=== PATIENT | male | born 1955 | race Two or more races ===

== ENCOUNTER 2020-09-05 15:20 | Emergency (ER) | payer MEDICARE, MEDICAID, SELFPAY ==
[2020-09-05 15:32] VITALS: BP 119/77; PULSE 99; RESP 16; TEMP 37.1; O2SAT 97; BMI 28.8
--- NOTE | 2020-09-05 16:05 | ED.GENADULT ---
HPI - General Adult General Chief complaint: General Medical Stated complaint: FLU LIKE SYMPTOMS Time Seen by Provider: 09/05/20 16:05 History of Present Illness HPI narrative: Patient com patient complains of body aches, mild runny nose and some fatigue, no cough no shortness of breath no fever This started 3 days ago, symptoms are described as mild Related Data Allergies Allergy/AdvReac Type Severity Reaction Status Date / Time No Known Allergies Allergy Verified 09/05/20 15:45 [No Known Allergies*] Review of Systems Review of Systems: No fever no chills no cough no sputum no weakness, no shortness of breath no chest pain no abdominal pain no rash PMFSH Past Medical History Source: nursing notes reviewed Medical History (Updated 09/05/20 @ 16:13 by AISHA Sanon) High cholesterol Social History Social History Smoked in Last 30 Days: No Use of substances other than those prescribed or required for medical reasons: No Advance Directives: No Advance Directives Information Provided: Yes Physical Exam Vital Signs: Vital Signs: Vital Signs Temp Pulse Resp BP Pulse Ox 09/05/20 15:32 98.7 F 99 16 119/77 97 Body Mass Index 28.8 General appearance is comfortable relax cooperative no acute distress A&O x3, ambulates easily and speaking normally No sinus tenderness, neck is supple without lymphadenopathy Chest is clear to auscultation bilaterally No acute respiratory distress The heart is without murmur Abdomen soft nontender Extremities no edema Neuro no focal deficit Course Course Course Narrative: Comfortable patient who speaks full sentences ambulates easily and is in no discomfort is tested for COVID and discharged home Discharge Plan Discharge Clinical Impression: Acute viral syndrome Patient Disposition: Home, Self-Care Instructions: Viral Syndrome (ED) Additional Instructions: We will call you with COVID test results Return any time for difficulty breathing, any worse condition any concerns Interventions: ED Discharge Assessment Last Done: 09/05/20 16:18 Discharge Date/Time: 09/05/20 16:24
== END 2020-09-05 16:24 | disposition home or self-care (01) ==
PROVIDERS: Emergency Provider Emergency Medicine; PCP Internal Medicine
DX: B34.9 Viral infection, unspecified (principal); M79.10 Myalgia, unspecified site; Z20.828 Contact with and (suspected) exposure to other viral communicable diseases
CPT/HCPCS: 99283; 99284; U0003

== ENCOUNTER → 2020-09-10 13:40 | Outpatient (BNVA) | payer MEDICARE, MEDICAID, SELFPAY | PROVIDERS: PCP Internal Medicine; Referring Provider Internal Medicine; Visit Provider Nurse Practitioner Family | DX: Z01.818 Encounter for other preprocedural examination (principal) | CPT/HCPCS: 99212 ==

== ENCOUNTER 2020-11-24 07:38 | Day surgery (SDC) | payer MEDICARE, MEDICAID, SELFPAY ==
--- NOTE | 2020-11-21 10:14 | HO.ANESPROP2 ---
HPI - Anesthesia Eval Consult details Narrative: 65yo M for Colonoscopy [facility] Past Medical History Medical History High cholesterol Family History Family History Father Heart problem Mother No problems noted. Social History Social History Alcohol intake: current Alcohol intake frequency: does not drink Alcohol type: beer and wine Smoking Status: Never smoker Meds Allergies Allergy/AdvReac Type Severity Reaction Status Date / Time No Known Allergies Allergy Verified 11/24/20 07:56 [No Known Allergies*] Home Medications Medication Instructions Recorded Confirmed Type atorvastatin 40 mg tablet 40 mg PO BEDTIME 09/10/20 11/18/20 History hydrochlorothiazide 12.5 mg tablet 12.5 mg PO DAILY 09/10/20 11/18/20 History Exam Exam Date and Time: November 21, 2020 1014 Assessment and Plan Assessment Anesthesia Assessment: Chart Reviewed
[2020-11-24 07:57] VITALS: BP 148/91; PULSE 94; RESP 18; TEMP 36.2; O2SAT 98; BMI 28.0
--- NOTE | 2020-11-24 08:29 | HO.ANESPROP2 ---
FORMERLY [facility] Past Medical History Medical History High cholesterol Family History Family History Father Heart problem Mother No problems noted. Social History Social History Alcohol intake: current Alcohol intake frequency: does not drink Alcohol type: beer and wine Smoking Status: Never smoker Use of substances other than those prescribed or required for medical reasons: No Advance Directives: No Advance Directives Information Provided: Yes Meds Allergies Allergy/AdvReac Type Severity Reaction Status Date / Time No Known Allergies Allergy Verified 11/24/20 07:56 [No Known Allergies*] Home Medications Medication Instructions Recorded Confirmed Type atorvastatin 40 mg tablet 40 mg PO BEDTIME 09/10/20 11/18/20 History hydrochlorothiazide 12.5 mg tablet 12.5 mg PO DAILY 09/10/20 11/18/20 History Exam Exam Date and Time: November 24, 202029 Height,Weight and Vital Signs: Height 5 ft 6 in Weight 78.925 kg Last Vital Signs Temp 97.2 F 11/24/20 07:57 Pulse 94 11/24/20 07:57 Resp 18 11/24/20 07:57 BP 148/91 H 11/24/20 07:57 Pulse Ox 98 11/24/20 07:57 Airway Mallampati Class: II TM Dist: >3cm Neck ROM: Full Heart: RRR Lungs: CTA
[2020-11-24] MEDS: Lactated Ringers 1,000 ML 50 ML IVCONT (08:32)
--- NOTE | 2020-11-24 08:40 | MHC.SHP ---
Pre-Procedural Eval Section B Chief Complaint: screening Relevant Social History: None Present Medications: see Short Stay Collaborative assessment Medical History: Significant History (HLP) History of Previous Operations: No relevant previous surgery Allergies: Allergies Allergy/AdvReac Type Severity Reaction Status Date / Time No Known Allergies Allergy Verified 11/24/20 07:56 [No Known Allergies*] Review of Systems Sugical H&P ROS: Negative: Constitution, Cardiovascular, Respiratory, Neurological, Psychiatric, Hem-Onc, Allergic/Immunologic, Gastrointestinal, Genitourinary, Musculoskeletal, Integumentary, Endocrine and Eyes/Ears/Nose/Throat Exam Surgical H&P Exam: Normal: HEENT, Normal: Heart, Normal: Lungs, Normal: Extremities, Normal: Abdomen, Normal: Skin and Normal: Neurological Plan Diagnosis/Plan: Unchanged I have reviewed the history and physical and performed a pertinent physical examination on my patient. No changes have occurred unless specified.
--- NOTE | 2020-11-24 08:43 | PM.OP ---
Brief Operative Note Date of Service: 11/24/20 Pre-op diagnosis: colon screen Post-op diagnosis: other (polyp) Procedure: see op note Surgeon: Fifi Cano MD Anesthesia: MAC Estimated blood loss (mL): 0 Condition: stable Disposition: PACU
--- NOTE | 2020-11-24 08:44 | P.OP_ITS ---
Operative Note Operative Note Date of Service: 11/24/20 Narrative: Operative Information Procedure Description: Colonoscopy COLONOSCOPY Instrument: Olympus variable stiffness pediatric scope 190L Colonoscopy Monitoring: Vital signs and clinical assessment, continuous EKG monitoring, Pulse oximetry, Carbon Dioxide monitoring and blood pressure monitoring were done throughout the procedure. Colon withdrawal time was 11 minutes. Procedure: The patient was placed in the left lateral decubitis position and pre-procedure medications were administered. After a digital rectal examination of the ano-rectum, the video colonoscope was inserted into the rectum and advanced through the colon to the cecum/TI. The colonoscope was slowly withdrawn in a retrograde panoramic fashion and the colon mucosa was carefully examined including a retroflexed view of the rectum. Findings and interventions are described below. Procedure Difficulty:easy Findings: Gaytan diverticulosis, most severe in sigmoid, with wide mouthed tics Terminal Ileum-normal Cecum: 10-13 mm stellate shaped sessile polyp injected with 1-2 cc of ORISE and then removed with cold snare en bloc Ascending Colon: normal Transverse Colon -normal Descending Colon:normal Sigmoid Colon: normal Rectum: Retroflexion with moderate sized internal hemorrhoids, grade I Anorectum - normal Colon preparation: Garrison Bowel Preparation Scale Right colon; 1 Transverse colon: 2 Left colon; 2 (0 = Unprepared colon segment with mucosa not seen due to solid stool that cannot be cleared. 1 = Portion of mucosa of the colon segment seen, but other areas of the colon segment not well seen due to staining, residual stool and/or opaque liquid. 2 = Minor amount of residual staining, small fragments of stool and/or opaque liquid, but mucosa of colon segment seen well. 3 = Entire mucosa of colon segment seen well with no residual staining, small fragments of stool or opaque liquid) Impression and Post Procedure Diagnosis: polyp internal hemorrhoids diverticular disease Plan: High fiber diet leaflet Avoid straining at stool, epsom salts and sitz bath, anusol supps or cream Repeat Colonoscopy in 1-2 years due to right sided prep being slightly less than optimal or earlier if clinically indicated Above findings were reviewed with the patient and relevant handouts were provided if indicated.
[2020-11-24 09:13] VITALS: BP 103/72; PULSE 98; RESP 17; TEMP 36.3; O2SAT 95
[2020-11-24 09:28] VITALS: BP 114/72; PULSE 80; RESP 16; O2SAT 95
--- NOTE | 2020-11-24 10:54 | HO.POSTANES ---
Post Anesthesia Evaluation Post Anesthesia Evaluation Vital Signs: Vital Signs Temp Pulse Resp BP Pulse Ox 11/24/20 09:28 80 16 114/72 95 11/24/20 09:13 97.4 F 98 17 103/72 95 11/24/20 07:57 97.2 F 94 18 148/91 H 98 Anesthesia: Monitored Mental Status: Awake Pain Control: Satisfactory Nausea/Vomiting: None Hydration: Adequate Anesthesia-Related Issues: No Anes. Related Issues
== END 2020-11-24 10:03 | disposition home or self-care (01) ==
PROVIDERS: PCP Internal Medicine; Visit Provider Internal Medicine Gastroenterology
PROC: 0DJD8ZZ Inspection of Lower Intestinal Tract, Via Natural or Artificial Opening Endoscopic (ICD-10-PCS; CPT 45378; principal; 2020-11-24 08:30)
DX: Z12.11 Encounter for screening for malignant neoplasm of colon (principal); D12.0 Benign neoplasm of cecum; K57.30 Diverticulosis of large intestine without perforation or abscess without bleeding; K64.0 First degree hemorrhoids; E78.00 Pure hypercholesterolemia, unspecified; Z79.899 Other long term (current) drug therapy
CPT/HCPCS: 45385; 45381; 88305

== ENCOUNTER 2020-12-18 13:46 | Outpatient (REF) | payer MEDICARE, MEDICAID, SELFPAY ==
--- NOTE | ~2020-12-18 | US_ITS ---
EXAMINATION: US EXTRACRANIAL CAROTID DUPLEX, BILATERAL CLINICAL INFORMATION: This is a 65-year-old male with syncope. Carotid artery disease. COMPARISON: None TECHNIQUE: Real-time ultrasound and Doppler techniques (integrating B-mode 2-D vascular images, Doppler spectral analysis and color-flow Doppler imaging) were utilized to interrogate the extracranial carotid arteries, the vertebral arteries and proximal subclavian arteries bilaterally. The degree of stenosis is determined by criteria similar to NASCET. FINDINGS: Right Side: 1. There is minimal atherosclerotic plaque seen in the bifurcation/proximal ICA region. 2. The common carotid artery PSV proximally is 137 cm/s and distally 75 cm/s. 3. The proximal internal carotid artery velocities are 69 cm/s systolic and 20 cm/s diastolic. 4. The proximal external carotid artery PSV is 76 cm/s. 5. The vertebral artery shows antegrade flow. 6. The subclavian artery waveforms are normal. Left Side: 1. There is normal atherosclerotic plaque seen in the bifurcation/proximal ICA region. 2. The common carotid artery PSV proximally is 100 cm/s and distally 89 cm/s. 3. The proximal internal carotid artery velocities are 73 cm/s systolic and 20 cm/s diastolic. 4. The proximal external carotid artery PSV is 80 cm/s. 5. The vertebral artery shows antegrade flow. 6. The subclavian artery waveforms are normal. US/US carotid duplex BI IMPRESSION: 1. RIGHT: Minimal, non-hemodynamically significant stenosis of the proximal right internal carotid artery corresponding to a 0-49% stenosis by velocity criteria. 2. LEFT: Minimal, non-hemodynamically significant stenosis of the proximal left internal carotid artery corresponding to a 0-49% stenosis by velocity criteria.
== END 2020-12-18 13:47 | disposition home or self-care (01) ==
LOC: HO.US 13:46
PROVIDERS: PCP Internal Medicine; Visit Provider Internal Medicine
DX: R55 Syncope and collapse (principal)
CPT/HCPCS: 93880

== ENCOUNTER → 2020-12-26 14:16 | Outpatient (BNVA) | payer MEDICARE, MEDICAID, SELFPAY | PROVIDERS: PCP Internal Medicine; Visit Provider Nurse Practitioner Family | DX: Z76.89 Persons encountering health services in other specified circumstances (principal) | CPT/HCPCS: Q3014 ==

== ENCOUNTER 2021-01-20 14:37 | Emergency (ER) | payer MEDICARE, MEDICAID, SELFPAY ==
[2021-01-20 14:44] VITALS: BP 188/105; PULSE 89; RESP 18; TEMP 36; O2SAT 98; BMI 28.2
[2021-01-20 17:23] VITALS: BP 174/84; PULSE 91; RESP 16; O2SAT 97
--- NOTE | 2021-01-20 17:30 | ED.BACK ---
HPI - Back Pain/Injury General Chief Complaint: Back Pain/Injury Stated Complaint: BACK PAIN Time Seen by Provider: 01/20/21 17:16 Source: patient Mode of arrival: ambulatory Limitations: no limitations History of Present Illness HPI Narrative: 65 y/o male presenting with non-traumatic right lower back pain that radiates down his right leg for the last 2 days. The pain is preventing him from getting any sleep. He has not been taking any medications for the pain. He has a history of similar episodes. He states he was helping a family member move and was lifting heavy boxes and twisting to pass items along to other people helping out. He woke up the next morning with the pain. He denies numbness or tingling. No weakness in his legs. He is limping due to the pain. No incontinence, no fevers, chills, no hx IVDA. MD elicited complaint: back pain and back injury Pertinent past history: prior back pain Onset (ago): day(s) (2) Timing: constant Severity: severe Similar Symptoms Previously: Yes Quality: aching and spasming Location: right lower back Radiation: right upper leg Exacerbating factors: movement, walking and coughing/sneezing Relieving factors: immobilization and supine Context: while lifting and turning/twisting Associated symptoms: difficulty walking Treatments prior to arrival: cold therapy Work related injury: No Related Data Home Medications Medication Instructions Recorded Confirmed atorvastatin 40 mg tablet 40 mg PO BEDTIME 09/10/20 11/18/20 hydrochlorothiazide 12.5 mg tablet 12.5 mg PO DAILY 09/10/20 11/18/20 Previous Rx's Medication Instructions Recorded polyethylene glycol 3350 17 17 g PO ONCE #238 g 09/10/20 gram/dose oral powder cyclobenzaprine 10 mg PO TID PRN #10 tab 01/20/21 ibuprofen 600 mg PO Q8H PRN #20 tab 01/20/21 lidocaine [Lidoderm] 1 patch TOPICAL DAILY #15 ea 01/20/21 tramadol 50 mg PO Q6-8H PRN #8 tab 01/20/21 Allergies Allergy/AdvReac Type Severity Reaction Status Date / Time No Known Allergies Allergy Verified 01/20/21 14:44 [No Known Allergies*] Review of Systems Review of Systems: Constitutional: No Fever, No Chills Gastrointestinal: No Nausea, No Vomiting, No Diarrhea, No abdominal Belle Genitourinary: No Dysuria, No Urinary Frequency, No Hematuria Musculoskeletal: + joint pain, + Myalgias Skin: No Skin Lesions, No rash Neuro: No Weakness, No Numbness Psych: No Anxiety/Panic, No Depression Heme/Lymph: No Bruising, No Lymphadenopathy PMFSH Past Medical History Attestation statement: The following information was validated with the patient. Medical History High cholesterol Tubular adenoma Surgical History History of esophagogastroduodenoscopy (EGD) Family History Family History Father Heart problem Mother No problems noted. Social History Social History (Updated 12/26/20 @ 14:23 by Shwetha Brown [facility]) Household Members: None Alcohol intake: current Alcohol intake frequency: 3 or more drinks per day Alcohol type: beer, wine and hard liquor Smoking Status: Never smoker Substance Use Type: Marijuana Advance Directives: No Advance Directives Information Provided: No Current occupational status: retired Physical Exam Vital Signs: Vital Signs: Last Vital Signs Temp 96.8 F 01/20/21 14:44 Pulse 91 01/20/21 17:23 Resp 16 01/20/21 17:23 BP 174/84 H 01/20/21 17:23 Pulse Ox 97 01/20/21 17:23 Body Mass Index 28.2 Appearance: Alert. Oriented X3. No acute distress. HEENT: normal inspection CVS: Normal heart rate and rhythm. Pulses normal. Respiratory: No respiratory distress. Skin: Skin warm and dry. Normal skin color. Normal skin turgor. No rashes. Back: normal inspection, right SI joint with tenderness, soft tissue tenderness in right low lumbar area Extremities: atraumatic, normal DTR's, no edema Neuro: Oriented X 3. No motor deficit. No sensory deficit. Walks with steady gait with a limp Course Course Course Narrative: 65 y/o male presenting with right sided back pain after lifting. Hx sciatica. Clinical picture consistent with a flare of this - no red flag symptoms of LBP, no hx IVDA. He has no numbness or weakness. Will treat for sciatica with NSAID, muscle relaxer and narcotic for severe pain. He agrees to follow up with his PCP this week. He is stable for discharge. Critical Care Time Critical Care Time Critical Care Time: No Discharge Plan Discharge Clinical Impression: Sciatica Qualifiers: Laterality: right Qualified Code(s): M54.31 - Sciatica, right side Patient Disposition: Home, Self-Care Instructions: Sciatica (ED), Lower Back Exercises (ED) Additional Instructions: No bending, lifting or twisting. Use ice several times per day for 20 minutes at a time for the next 48 hours and then change to heat. Take medications as prescribed to help with pain and discomfort. Do not drive after taking Tramadol or Flexeril, they can make you drowsy. Follow up with your Primary Care Doctor this week. If your pain worsens, if you develop new numbness, tingling, weakness, loss of function or incontinence call 911 or come back to the ER right away for evaluation. Prescriptions: New tramadol 50 mg tablet 50 mg PO Q6-8H PRN (Reason: pain) Qty: 8 RF: 0 cyclobenzaprine 10 mg tablet 10 mg PO TID PRN (Reason: muscle spasm) Qty: 10 RF: 0 lidocaine [Lidoderm] 5 % adhesive patch,medicated 1 patch topical DAILY Qty: 15 RF: 0 ibuprofen 600 mg tablet 600 mg PO Q8H PRN (Reason: pain) Qty: 20 RF: 0 No Action atorvastatin 40 mg tablet 40 mg PO BEDTIME RF: 0 hydrochlorothiazide 12.5 mg tablet 12.5 mg PO DAILY RF: 0 polyethylene glycol 3350 [Miralax] 17 gram/dose powder 17 g PO ONCE Qty: 238 RF: 0 Print Language: Vietnamese
[2021-01-20] MEDS: Ketorolac Tromethamine 30 MG/ML VIAL IM (17:59)
== END 2021-01-20 18:10 | disposition home or self-care (01) ==
PROVIDERS: Emergency Provider Emergency Medicine; PCP Internal Medicine
DX: M54.31 Sciatica, right side (principal); M54.5 Low back pain; F12.90 Cannabis use, unspecified, uncomplicated; Z79.899 Other long term (current) drug therapy
CPT/HCPCS: 96372; 99284; J1885

== ENCOUNTER 2021-01-23 14:14 | Emergency (ER) | payer MEDICARE, MEDICAID, SELFPAY ==
[2021-01-23 14:16] VITALS: BP 167/105; PULSE 111; RESP 18; TEMP 36.7; O2SAT 97; BMI 28.2
--- NOTE | 2021-01-23 14:58 | ED.BACK ---
HPI - Back Pain/Injury General Chief Complaint: Back Pain/Injury Stated Complaint: back pain Time Seen by Provider: 01/23/21 14:58 History of Present Illness HPI Narrative: Complains of back pain radiating down right leg with some numbness and tingling, was here several days ago and given Flexeril and Motrin without significant relief and returns for re-evaluation. He got a shot of Toradol in the ER which was helpful for a period of time on last visit, no numbness no weakness no changes to bowel or bladder Related Data Home Medications Medication Instructions Recorded Confirmed atorvastatin 40 mg tablet 40 mg PO BEDTIME 09/10/20 11/18/20 hydrochlorothiazide 12.5 mg tablet 12.5 mg PO DAILY 09/10/20 11/18/20 Previous Rx's Medication Instructions Recorded polyethylene glycol 3350 17 17 g PO ONCE #238 g 09/10/20 gram/dose oral powder cyclobenzaprine 10 mg PO TID PRN #10 tab 01/20/21 ibuprofen 600 mg PO Q8H PRN #20 tab 01/20/21 lidocaine [Lidoderm] 1 patch TOPICAL DAILY #15 ea 01/20/21 tramadol 50 mg PO Q6-8H PRN #8 tab 01/20/21 prednisone 60 mg PO DAILY 4 Days #12 tab 01/23/21 prednisone 60 mg PO DAILY 4 Days #12 tab 01/23/21 Allergies Allergy/AdvReac Type Severity Reaction Status Date / Time No Known Allergies Allergy Verified 01/20/21 14:44 [No Known Allergies*] Review of Systems Review of Systems: Positive for right-sided back pain radiating down right leg Negatives are no fever no chills no dizziness no weakness no fainting no headache no neck pain no chest pain no shortness of breath no abdominal pain no nausea vomiting or diarrhea there is no changes to bowel or bladder there is no dysuria no frequency no incontinence no rash no numbness or weakness Yes all other systems are reviewed and are negative PMFSH Past Medical History Source: nursing notes reviewed Medical History High cholesterol Tubular adenoma Surgical History History of esophagogastroduodenoscopy (EGD) Family History Family History Father Heart problem Mother No problems noted. Social History Social History (Updated 12/26/20 @ 14:23 by Shwetha Brown [facility]) Household Members: None Alcohol intake: current Alcohol intake frequency: 3 or more drinks per day Alcohol type: beer, wine and hard liquor Smoking Status: Never smoker Substance Use Type: Marijuana Advance Directives: No Advance Directives Information Provided: No Current occupational status: retired Physical Exam Vital Signs: Vital Signs: Last Vital Signs Temp 98.1 F 01/23/21 14:16 Pulse 111 H 01/23/21 14:16 Resp 18 01/23/21 14:16 BP 167/105 H 01/23/21 14:16 Pulse Ox 97 01/23/21 14:16 Body Mass Index 28.2 General appearance is no acute distress, A&O x3, cooperative Head is normocephalic atraumatic Neck is supple and nontender The chest is clear to auscultation bilaterally with full symmetric breath sounds Heart rate and rhythm regular no murmur Abdomen soft nontender The back had right lower lumbar tenderness, no CVA tenderness no focal bony tenderness, pain is easily reproduced with movement, there are no skin changes no redness or rash Extremities is full range of motion x4 The skin no rashes Neuro motor is 5 over 5 times for sensation is intact, gait is normal, patient can walk on his toes and walk on his heels and squat Course Course Course Narrative: Patient with sciatica symptoms not relieved with Motrin and Flexeril is given another shot of Toradol with some relief and is given a script for prednisone as well to possibly reduce inflammation around the nerve and patient is discharged with no cauda equina and no neurologic impairment Discharge Plan Discharge Clinical Impression: Sciatica Patient Disposition: Home, Self-Care Additional Instructions: We added the medication prednisone to what you are already taking And many cases prednisone will reduce inflammation around the nerve and improve sciatica symptoms Follow closely with primary care doctor for referral if needed for MRI or to a specialist, physical therapy is often helpful Return any time for weakness incontinence, any worse condition or any concerns Prescriptions: New prednisone 20 mg tablet 60 mg PO DAILY 4 Days Qty: 12 RF: 0 prednisone 20 mg tablet 60 mg PO DAILY 4 Days Qty: 12 RF: 0 No Action tramadol 50 mg tablet 50 mg PO Q6-8H PRN (Reason: pain) Qty: 8 RF: 0 cyclobenzaprine 10 mg tablet 10 mg PO TID PRN (Reason: muscle spasm) Qty: 10 RF: 0 lidocaine [Lidoderm] 5 % adhesive patch,medicated 1 patch topical DAILY Qty: 15 RF: 0 ibuprofen 600 mg tablet 600 mg PO Q8H PRN (Reason: pain) Qty: 20 RF: 0 atorvastatin 40 mg tablet 40 mg PO BEDTIME RF: 0 hydrochlorothiazide 12.5 mg tablet 12.5 mg PO DAILY RF: 0 polyethylene glycol 3350 [Miralax] 17 gram/dose powder 17 g PO ONCE Qty: 238 RF: 0 Interventions: ED Discharge Assessment Last Done: 01/23/21 16:34 Discharge Date/Time: 01/23/21 16:30
[2021-01-23] MEDS: Ketorolac Tromethamine 30 MG/ML VIAL IM (16:02)
== END 2021-01-23 16:30 | disposition home or self-care (01) ==
PROVIDERS: Emergency Provider Emergency Medicine Emergency Medical Services; PCP Internal Medicine
DX: M54.41 Lumbago with sciatica, right side (principal); F12.90 Cannabis use, unspecified, uncomplicated
CPT/HCPCS: 96372; 99283; 99284; J1885

== ENCOUNTER 2021-01-28 09:56 | Emergency (ER) | payer MEDICARE, MEDICAID, SELFPAY ==
[2021-01-28 10:02] VITALS: BP 184/112; BP 210/118; PULSE 102; RESP 16; TEMP 36.9; O2SAT 98; BMI 27.3
[2021-01-28] MEDS: Ketorolac Tromethamine 30 MG/ML VIAL IM (10:47)
--- NOTE | 2021-01-28 10:50 | ED.BACK ---
HPI - Back Pain/Injury General Chief Complaint: Back Pain/Injury Stated Complaint: sciatica pain Time Seen by Provider: 01/28/21 10:23 Source: patient Mode of arrival: ambulatory History of Present Illness HPI Narrative: 65-year-old male of the past medical history of hyperlipidemia, acute on chronic back pain, presenting to the ED complaining of right low back pain radiating to lower extremity x2 weeks. Admits to similar symptoms in the past which he was seen and treated in the ED for. Requesting Toradol injection as provided symptomatic relief. Reports ran out of previously prescribed medications, has been unable to see PCP/PT. Reports symptoms unchanged, denies numbness, tingling, weakness, direct trauma/falls or injury, urinary incontinence/retention MD elicited complaint: back pain Related Data Home Medications Medication Instructions Recorded Confirmed atorvastatin 40 mg tablet 40 mg PO BEDTIME 09/10/20 11/18/20 hydrochlorothiazide 12.5 mg tablet 12.5 mg PO DAILY 09/10/20 11/18/20 Previous Rx's Medication Instructions Recorded polyethylene glycol 3350 17 17 g PO ONCE #238 g 09/10/20 gram/dose oral powder cyclobenzaprine 10 mg PO TID PRN #10 tab 01/20/21 ibuprofen 600 mg PO Q8H PRN #20 tab 01/20/21 lidocaine [Lidoderm] 1 patch TOPICAL DAILY #15 ea 01/20/21 tramadol 50 mg PO Q6-8H PRN #8 tab 01/20/21 prednisone 60 mg PO DAILY 4 Days #12 tab 01/23/21 prednisone 60 mg PO DAILY 4 Days #12 tab 01/23/21 acetaminophen [Tylenol Extra 500 mg PO Q6H PRN #20 tab 01/28/21 Strength] cyclobenzaprine 5 mg PO Q8H PRN 5 Days #14 tab 01/28/21 lidocaine [Lidoderm] 1 patch TOPICAL DAILY PRN #30 ea 01/28/21 MDD remove after 12 hours naproxen 500 mg PO BID PRN 10 Days #20 tab 01/28/21 tramadol 50 mg PO Q8H PRN 3 Days #9 tab 01/28/21 Allergies Allergy/AdvReac Type Severity Reaction Status Date / Time No Known Allergies Allergy Verified 01/20/21 14:44 [No Known Allergies*] Review of Systems Review of Systems: Constitutional: No Fever, No Chills Genitourinary: No Urinary Incontinence/retention Musculoskeletal: +back pain, No Myalgias, No Joint Swelling Skin: No rash Neuro: No Weakness, No Numbness, No Paresthesias Yes all other systems are reviewed and are negative [facility] Past Medical History Attestation statement: The following information was validated with the patient. Medical History High cholesterol Tubular adenoma Surgical History History of esophagogastroduodenoscopy (EGD) Family History Family History Father Heart problem Mother No problems noted. Social History Social History (Updated 12/26/20 @ 14:23 by Shwetha Brown [facility]) Household Members: None Alcohol intake: current Alcohol intake frequency: 3 or more drinks per day Alcohol type: beer, wine and hard liquor Smoking Status: Never smoker Substance Use Type: Marijuana Advance Directives: No Advance Directives Information Provided: No Current occupational status: retired Physical Exam Vital Signs: Vital Signs: Last Vital Signs Temp 98.4 F 01/28/21 10:02 Pulse 102 H 01/28/21 10:02 Resp 16 01/28/21 10:02 BP 184/112 H 01/28/21 10:02 Pulse Ox 98 01/28/21 10:02 Body Mass Index 27.3 Const: General: cooperative, healthy appearing and comfortable Orientation/consciousness: patient oriented x3 Limitations: no limitations HENMT: Head: Yes normal to inspection Ears: hearing grossly normal bilaterally General nose exam: Normal external nose present Face and sinus: Yes normal facial exam Eyes: General: appearance normal, both eyes and all related structures EOM: EOMs intact bilaterally Neck: Neck: Yes normal visual inspection Resp: Effort & Inspection: normal respiratory effort Cardio: Rate: regular rate Back/Spine/Pelvis: Other: No midline thoracic/lumbar spinous tenderness. + right-sided low lumbar MSK tenderness to palpation. Skin: Rashes: no rashes Wounds: no wounds Neuro: Other: No saddle anesthesia. Sensation intact to light touch. Strength intact throughout General: patient oriented x3, gait normal, tone normal and moves all extremities Gait exam (Neuro): Normal gait present Motor exam (neuro): 5/5 motor strength present throughout Extrem: General: Yes normal to inspection MDM - Back Pain/Injury MDM Narrative Medical decision making narrative: On exam hypertensive and slightly tachycardic likely from pain, no midline spinous tenderness throughout or step-offs, no red flag symptoms, no saddle anesthesia. Likely MSK pain/sciatica. Low concern for cauda equina/cord compression or fracture Discharge Plan Discharge Clinical Impression: Sciatica Qualifiers: Laterality: right Qualified Code(s): M54.31 - Sciatica, right side Patient Disposition: Home, Self-Care Instructions: Sciatica (ED) Additional Instructions: Your pain is likely musculoskeletal Flexeril is a muscle relaxer, take at night as it makes you drowsy, do not drive, drink alcohol, or operate machinery while taking it Naproxen as an anti-inflammatory / pain medication, take with food Lidoderm patches are numbing patches, apply to painful area In addition take Tylenol at home Tramadol as an opiate pain medication, take only when pain is severe If symptoms persist or worsen, pain becomes unbearable, you developed urinary retention or incontinence, or weakness return to the ED Es probable que meyers dolor sea musculoesquel?caio Flexeril es un relajante muscular, t?baker por la noche ya que le produce somnolencia, no conduzca, no deo alcohol ni utilice maquinaria mientras lo anders. Naproxeno esa medicamento antiinflamatorio / analg?sico, hilario con alimentos. Los parches de Lidoderm son parches que adormecen, se aplican al ?sonam dolorida Adem?s, tome Tylenol en casa. Tramadol esa analg?sico opi?cigar head pegger, t?baker solo cuando el dolor sea intenso Si los s?ntomas persisten o empeoran, el dolor se vuelve insoportable, desarroll? retenci?n urinaria o incontinencia, o debilidad regrese al servicio de urgencias Prescriptions: New cyclobenzaprine 5 mg tablet 5 mg PO Q8H PRN (Reason: pain (scale score 7-10)) 5 Days Qty: 14 RF: 0 lidocaine [Lidoderm] 5 % adhesive patch,medicated 1 patch topical DAILY MDD remove after 12 hours PRN (Reason: pain) Qty: 30 RF: 0 naproxen 500 mg tablet 500 mg PO BID PRN (Reason: pain) 10 Days Qty: 20 RF: 0 acetaminophen [Tylenol Extra Strength] 500 mg tablet 500 mg PO Q6H PRN (Reason: pain or fever) Qty: 20 RF: 0 tramadol 50 mg tablet 50 mg PO Q8H PRN (Reason: pain, severe) 3 Days Qty: 9 RF: 0 No Action tramadol 50 mg tablet 50 mg PO Q6-8H PRN (Reason: pain) Qty: 8 RF: 0 cyclobenzaprine 10 mg tablet 10 mg PO TID PRN (Reason: muscle spasm) Qty: 10 RF: 0 lidocaine [Lidoderm] 5 % adhesive patch,medicated 1 patch topical DAILY Qty: 15 RF: 0 ibuprofen 600 mg tablet 600 mg PO Q8H PRN (Reason: pain) Qty: 20 RF: 0 prednisone 20 mg tablet 60 mg PO DAILY 4 Days Qty: 12 RF: 0 prednisone 20 mg tablet 60 mg PO DAILY 4 Days Qty: 12 RF: 0 atorvastatin 40 mg tablet 40 mg PO BEDTIME RF: 0 hydrochlorothiazide 12.5 mg tablet 12.5 mg PO DAILY RF: 0 polyethylene glycol 3350 [Miralax] 17 gram/dose powder 17 g PO ONCE Qty: 238 RF: 0 Referrals: Physician,Unknown [Primary Care Provider] - 5 days Interventions: ED Discharge Assessment Last Done: 01/28/21 11:24 Print Language: German
== END 2021-01-28 11:24 | disposition home or self-care (01) ==
PROVIDERS: Emergency Provider Emergency Medicine
DX: M54.41 Lumbago with sciatica, right side (principal); R00.0 Tachycardia, unspecified; F12.90 Cannabis use, unspecified, uncomplicated
CPT/HCPCS: 96372; 99283; 99284; J1885

== ENCOUNTER 2021-02-05 07:46 | Emergency (ER) | payer MEDICARE, MEDICAID, SELFPAY ==
[2021-02-05 09:11] VITALS: BP 164/99; PULSE 110; RESP 16; TEMP 36.6; O2SAT 95; BMI 28.2
--- NOTE | 2021-02-05 09:25 | ED_ITS ---
HPI - Back Pain/Injury General Chief Complaint: Back Pain/Injury Stated Complaint: SCIATIC BACK PAIN Time Seen by Provider: 02/05/21 09:25 History of Present Illness HPI Narrative: Patient complains of sciatica on right side similar to many prior episodes over many years, no new injury, no numbness weakness or incontinence no changes to bowel or bladder no fever no chills no abdominal pain no chest pain Related Data Home Medications Medication Instructions Recorded Confirmed atorvastatin 40 mg tablet 40 mg PO BEDTIME 09/10/20 11/18/20 hydrochlorothiazide 12.5 mg tablet 12.5 mg PO DAILY 09/10/20 11/18/20 Previous Rx's Medication Instructions Recorded polyethylene glycol 3350 17 17 g PO ONCE #238 g 09/10/20 gram/dose oral powder cyclobenzaprine 10 mg PO TID PRN #10 tab 01/20/21 ibuprofen 600 mg PO Q8H PRN #20 tab 01/20/21 lidocaine [Lidoderm] 1 patch TOPICAL DAILY #15 ea 01/20/21 tramadol 50 mg PO Q6-8H PRN #8 tab 01/20/21 prednisone 60 mg PO DAILY 4 Days #12 tab 01/23/21 prednisone 60 mg PO DAILY 4 Days #12 tab 01/23/21 acetaminophen [Tylenol Extra 500 mg PO Q6H PRN #20 tab 01/28/21 Strength] cyclobenzaprine 5 mg PO Q8H PRN 5 Days #14 tab 01/28/21 lidocaine [Lidoderm] 1 patch TOPICAL DAILY PRN #30 ea 01/28/21 MDD remove after 12 hours naproxen 500 mg PO BID PRN 10 Days #20 tab 01/28/21 tramadol 50 mg PO Q8H PRN 3 Days #9 tab 01/28/21 oxycodone-acetaminophen [Percocet] 1 tab PO Q4-6H PRN #14 tab 02/05/21 Allergies Allergy/AdvReac Type Severity Reaction Status Date / Time No Known Allergies Allergy Verified 01/20/21 14:44 [No Known Allergies*] Review of Systems Review of Systems: Review of systems is positive for back pain radiating down right leg negatives are no fever no chills no dizziness no weakness no confusion no neck pain no numbness weakness or tingling no chest pain no shortness of b reath no abdominal pain no nausea or vomiting no dysuria no changes to bowel or bladder no incontinence no skin rash no weakness or numbness [facility] Past Medical History [facility] Narrative: Patient has history of periodic flares of sciatica Source: nursing notes reviewed Medical History High cholesterol Tubular adenoma Surgical History History of esophagogastroduodenoscopy (EGD) Family History Family History Father Heart problem Mother No problems noted. Social History Social History (Updated 12/26/20 @ 14:23 by Shwetha Brown CMA) Household Members: None Alcohol intake: current Alcohol intake frequency: 3 or more drinks per day Alcohol type: beer, wine and hard liquor Smoking Status: Never smoker Substance Use Type: Marijuana Advance Directives: Yes Advance Directives Information Provided: No Advance Directives on File: No Current occupational status: retired Physical Exam Vital Signs: Vital Signs: Last Vital Signs Temp 97.9 F 02/05/21 09:11 Pulse 110 H 02/05/21 09:11 Resp 16 02/05/21 09:11 BP 164/99 H 02/05/21 09:11 Pulse Ox 95 02/05/21 09:11 Body Mass Index 28.2 General appearance is no acute distress, uncomfortable, comp and cooperative The head is normocephalic atraumatic Neck is supple The chest is clear to auscultation with full symmetrical breath sounds Heart rate and rhythm regular no murmur Abdomen soft nontender The back head right-sided low lumbar paraspinal tenderness, no bony tenderness, no no CVA tenderness, skin is normal no redness warmth or wound Extremities is full range of motion x4 Neuro is no motor or sensory deficit, motor is 5/5 x4, patient can walk up on his toes and on his heels, he can squat, sensation is intact and symmetrical in both feet Course Course Course Narrative: Patient is treated with analgesics with some relief and is discharged to follow up with primary care with no neurologic deficit and diagnosis is sciatica flare Discharge Plan Discharge Clinical Impression: Lumbar radiculopathy Patient Disposition: Home, Self-Care Additional Instructions: Follow with your primary care doctor for physical therapy and further evaluation Return any time any concerns Prescriptions: New oxycodone-acetaminophen [Percocet] 5-325 mg tablet 1 tab PO Q4-6H PRN (Reason: pain) Qty: 14 RF: 0 No Action tramadol 50 mg tablet 50 mg PO Q6-8H PRN (Reason: pain) Qty: 8 RF: 0 cyclobenzaprine 10 mg tablet 10 mg PO TID PRN (Reason: muscle spasm) Qty: 10 RF: 0 lidocaine [Lidoderm] 5 % adhesive patch,medicated 1 patch topical DAILY Qty: 15 RF: 0 ibuprofen 600 mg tablet 600 mg PO Q8H PRN (Reason: pain) Qty: 20 RF: 0 prednisone 20 mg tablet 60 mg PO DAILY 4 Days Qty: 12 RF: 0 prednisone 20 mg tablet 60 mg PO DAILY 4 Days Qty: 12 RF: 0 cyclobenzaprine 5 mg tablet 5 mg PO Q8H PRN (Reason: pain (scale score 7-10)) 5 Days Qty: 14 RF: 0 lidocaine [Lidoderm] 5 % adhesive patch,medicated 1 patch topical DAILY MDD remove after 12 hours PRN (Reason: pain) Qty: 30 RF: 0 naproxen 500 mg tablet 500 mg PO BID PRN (Reason: pain) 10 Days Qty: 20 RF: 0 acetaminophen [Tylenol Extra Strength] 500 mg tablet 500 mg PO Q6H PRN (Reason: pain or fever) Qty: 20 RF: 0 tramadol 50 mg tablet 50 mg PO Q8H PRN (Reason: pain, severe) 3 Days Qty: 9 RF: 0 atorvastatin 40 mg tablet 40 mg PO BEDTIME RF: 0 hydrochlorothiazide 12.5 mg tablet 12.5 mg PO DAILY RF: 0 polyethylene glycol 3350 [Miralax] 17 gram/dose powder 17 g PO ONCE Qty: 238 RF: 0 Interventions: ED Discharge Assessment Last Done: 02/05/21 10:26 Discharge Date/Time: 02/05/21 10:30
[2021-02-05] MEDS: Ketorolac Tromethamine 30 MG/ML VIAL IM (10:18)
== END 2021-02-05 10:30 | disposition home or self-care (01) ==
PROVIDERS: Emergency Provider Emergency Medicine Emergency Medical Services; PCP Internal Medicine
DX: M54.16 Radiculopathy, lumbar region (principal); E78.5 Hyperlipidemia, unspecified; F12.90 Cannabis use, unspecified, uncomplicated; Z79.02 Long term (current) use of antithrombotics/antiplatelets
CPT/HCPCS: 96372; 99283; 99284; J1885

== ENCOUNTER 2021-02-14 09:50 | Emergency (ER) | payer MEDICARE, MEDICAID, SELFPAY ==
[2021-02-14 09:55] VITALS: BP 174/109; PULSE 110; RESP 16; TEMP 36.9; O2SAT 97; BMI 28.2
--- NOTE | 2021-02-14 10:30 | ED.BACK ---
HPI - Back Pain/Injury General Chief Complaint: Back Pain/Injury Stated Complaint: back pain Time Seen by Provider: 02/14/21 10:07 Source: patient Mode of arrival: ambulatory Limitations: no limitations History of Present Illness HPI Narrative: With a past medical history of hyperlipidemia, acute on chronic back pain presenting to the ED with complaints of right lower back pain/buttocks pain radiating to his right leg/right calf for the past few days worse today. Reports this similar when compared to his prior episodes of back pain. He reports that he has been seen by his PCP by telehealth over the past 3 months and has not been prescribed any pain medications by his PCP. Reports we have been prescribing his pain medications. He reports he had an outpatient MRI in [place] yesterday. He reports he is currently awaiting results. Reports he was given Percocet on 02/06/2020 by of our providers here in the ED and provide moderate symptomatic relief better than the tramadol that he was given. He also reports Toradol and muscle relaxers also provide moderate symptomatic relief and is requesting that. Reports he has noticed that he has had some constipation since he started the Percocet. Although is moving his bowels. Last had a bowel movement this morning. Denies any other symptoms related to this. MD elicited complaint: back pain Pertinent past history: prior back pain Onset (ago): day(s) Timing: constant and progressively worsening Severity: moderate Similar Symptoms Previously: Yes Quality: sharp, aching and spasming Location: lumbar spine and sacrum Radiation: right upper leg and right leg below the knee Exacerbating factors: movement and walking Relieving factors: other (Moderate symptomatic relief with Toradol/Flexeril/Percocet and prednisone per patient) Associated symptoms: denies other symptoms Work related injury: No Related Data Home Medications Medication Instructions Recorded Confirmed atorvastatin 40 mg tablet 40 mg PO BEDTIME 09/10/20 11/18/20 hydrochlorothiazide 12.5 mg tablet 12.5 mg PO DAILY 09/10/20 11/18/20 Previous Rx's Medication Instructions Recorded polyethylene glycol 3350 17 17 g PO ONCE #238 g 09/10/20 gram/dose oral powder cyclobenzaprine 10 mg PO TID PRN #10 tab 01/20/21 ibuprofen 600 mg PO Q8H PRN #20 tab 01/20/21 lidocaine [Lidoderm] 1 patch TOPICAL DAILY #15 ea 01/20/21 tramadol 50 mg PO Q6-8H PRN #8 tab 01/20/21 prednisone 60 mg PO DAILY 4 Days #12 tab 01/23/21 prednisone 60 mg PO DAILY 4 Days #12 tab 01/23/21 acetaminophen [Tylenol Extra 500 mg PO Q6H PRN #20 tab 01/28/21 Strength] cyclobenzaprine 5 mg PO Q8H PRN 5 Days #14 tab 01/28/21 lidocaine [Lidoderm] 1 patch TOPICAL DAILY PRN #30 ea 01/28/21 MDD remove after 12 hours naproxen 500 mg PO BID PRN 10 Days #20 tab 01/28/21 tramadol 50 mg PO Q8H PRN 3 Days #9 tab 01/28/21 oxycodone-acetaminophen [Percocet] 1 tab PO Q4-6H PRN #14 tab 02/05/21 acetaminophen [Tylenol Extra 1,000 mg PO QID PRN #14 tab 02/14/21 Strength] cyclobenzaprine 10 mg PO Q8H #14 tab 02/14/21 ketorolac 10 mg PO Q8H PRN #14 tab 02/14/21 oxycodone 5 mg PO BID PRN #14 tab 02/14/21 prednisone 60 mg PO DAILY 5 Days #15 tab 02/14/21 Allergies Allergy/AdvReac Type Severity Reaction Status Date / Time No Known Allergies Allergy Verified 01/20/21 14:44 [No Known Allergies*] Review of Systems Review of Systems: Constitutional : No trauma, No Weight loss, No Fever, No Chills, ENT/Mouth : No Hearing loss, No Ear Pain, No Nasal Congestion, No Sinus Pain, No Hoarseness, No sore throat, No Rhinorrhea, No Swallowing Difficulty Cardiovascular : No Chest Pain, No SOB Respiratory : No Cough, No Dyspnea Gastrointestinal : No Nausea, No Vomiting, No Diarrhea, No abdominal Pain, No Hematochezia, No Melena Genitourinary : No Dysuria, No Urinary Frequency, No Hematuria, No Urinary or Bowel Incontinence/retention Musculoskeletal : + Back pain, No neck pain, No joint stiffness, No joint swelling Skin : No Skin Lesions, No rash or signs of infection Neuro : No Weakness, No radiation, No Numbness, No Paresthesias, No headache, no loss of bowel or bladder incontinence, no saddle anesthesia, Focal weakness, No radiation Denies history of IV drug usage. Yes all other systems are reviewed and are negative [facility] Past Medical History Attestation statement: The following information was validated with the patient. Medical History (Updated 02/14/21 @ 10:37 by AISHA Serrano) High cholesterol HTN (hypertension) Tubular adenoma Surgical History History of esophagogastroduodenoscopy (EGD) Family History Family History Father Heart problem Mother No problems noted. Social History Social History Household Members: None Alcohol intake: current Alcohol intake frequency: a few times a month Alcohol type: beer Smoking Status: Never smoker Smoked in Last 30 Days: No Use of substances other than those prescribed or required for medical reasons: No Substance Use Type: Marijuana Advance Directives: No Advance Directives Information Provided: No Current occupational status: retired Physical Exam Vital Signs: Vital Signs: Last Vital Signs Temp 98.4 F 02/14/21 09:55 Pulse 110 H 02/14/21 09:55 Resp 16 02/14/21 09:55 BP 174/109 H 02/14/21 09:55 Pulse Ox 97 02/14/21 09:55 Body Mass Index 28.2 vital signs have been reviewed as normal and appeared to be correct. Blood pressure hypertensive at 174/109. Heart rate tachycardic at 110. Respiration rate normal. Temperature normal. Oxygen saturation normal. Appearance: Alert. Oriented X3. No acute distress. Head: Normal external exam. Normocephalic. Atraumatic. No Persaud signs noted. No raccoon eyes noted Eyes: PERRLA. EOMI. Conjunctiva and sclera normal. Eyelids normal. ENT: EAC normal. TM's Normal. Pharynx normal. Uvula midline. Moist mucous membranes. No trismus noted. No drooling noted. No muffled voice noted. Neck: Normal inspection. Neck supple. FROM. No adenopathy. Thyroid Normal. No meningeal signs. No neck mass noted. CVS: Normal heart rate and rhythm. Heart sound normal. No murmurs noted. Pulses normal throughout. Respiratory: No respiratory distress. Painless inspiration. Breath sounds normal. No wheezes/rales/rhonchi noted. Chest nontender. No accessory muscle usage noted or decreased air movement noted. Abdomen: Soft and nontender. Bowel sounds normal in all 4 quadrants. No distention noted. No organomegaly noted. No visible injury noted. Back: No CVA tenderness. Full range of motion noted. No obvious deformities, or edema. Mild para-spinal muscular tenderness from lumbar region to coccyx. Full ROM in back and lower extremities. 5/5 strength hip extension/flexion, abduction, adduction. Mild Lumbar pain with hip flexion against resistance. Straight leg raise test positive on right; Straight leg raise test negative on left; Reflexes normal ankle and knee bilaterally; EHL motor strength normal bilaterally Skin: Skin warm and dry. Normal skin color. Normal skin turgor. No rashes/lesions/lacerations noted. Extremities: No lower extremity edema. Extremities exhibit normal range of motion. Extremities nontender. Neuro: Oriented X 3. No motor deficit. No sensory deficit. Reflexes normal. Course Course Course Narrative: Pt c likely muscular pain, but could be herniated disc. Neuro exam shows no deficits. Not c/w AAA/epidural abscess/dissection.No high risk Hx (Incont, fever, immunosupp, recent surgery/LP, coag, signif trauma, wt loss, puls mass, hx/o Ca, TB, or IVDU) to warrant MRI/CT today. Not c/w Pyelo/UTI/kidney stone/spinal fx. Not cauda equina syndrome. Imaging not currently indicated. Patient noted to have an elevated blood pressure at 174/109 and tachycardia of 110 although he denies any cardiac related complaints or any dizziness or any other symptoms including chest pain, shortness of breath, palpitations, nausea/vomiting or any other symptoms. DC c meds and f/u. MDM - Back Pain/Injury Differential Diagnosis Differential diagnosis: Likely lumbar radiculopathy, sciatica and strain of lumbar region Medical Records Attestation: I reviewed the patient's medical records. Lab Data Attestation: I reviewed the patient's lab results. Discharge Plan Discharge Clinical Impression: Lumbar radiculopathy, Strain of lumbar region, Sciatica Patient Disposition: Home, Self-Care Instructions: Sciatica (ED), Lumbar Radiculopathy (ED), Piriformis Syndrome (ED), Lower Back Exercises (ED) Prescriptions: New cyclobenzaprine 10 mg tablet 10 mg PO Q8H Qty: 14 RF: 0 ketorolac 10 mg tablet 10 mg PO Q8H PRN (Reason: pain) Qty: 14 RF: 0 oxycodone 5 mg tablet 5 mg PO BID PRN (Reason: pain) Qty: 14 RF: 0 prednisone 20 mg tablet 60 mg PO DAILY 5 Days Qty: 15 RF: 0 acetaminophen [Tylenol Extra Strength] 500 mg tablet 1,000 mg PO QID PRN (Reason: fever or pain) Qty: 14 RF: 0 No Action tramadol 50 mg tablet 50 mg PO Q6-8H PRN (Reason: pain) Qty: 8 RF: 0 cyclobenzaprine 10 mg tablet 10 mg PO TID PRN (Reason: muscle spasm) Qty: 10 RF: 0 lidocaine [Lidoderm] 5 % adhesive patch,medicated 1 patch topical DAILY Qty: 15 RF: 0 ibuprofen 600 mg tablet 600 mg PO Q8H PRN (Reason: pain) Qty: 20 RF: 0 prednisone 20 mg tablet 60 mg PO DAILY 4 Days Qty: 12 RF: 0 prednisone 20 mg tablet 60 mg PO DAILY 4 Days Qty: 12 RF: 0 cyclobenzaprine 5 mg tablet 5 mg PO Q8H PRN (Reason: pain (scale score 7-10)) 5 Days Qty: 14 RF: 0 lidocaine [Lidoderm] 5 % adhesive patch,medicated 1 patch topical DAILY MDD remove after 12 hours PRN (Reason: pain) Qty: 30 RF: 0 naproxen 500 mg tablet 500 mg PO BID PRN (Reason: pain) 10 Days Qty: 20 RF: 0 acetaminophen [Tylenol Extra Strength] 500 mg tablet 500 mg PO Q6H PRN (Reason: pain or fever) Qty: 20 RF: 0 tramadol 50 mg tablet 50 mg PO Q8H PRN (Reason: pain, severe) 3 Days Qty: 9 RF: 0 oxycodone-acetaminophen [Percocet] 5-325 mg tablet 1 tab PO Q4-6H PRN (Reason: pain) Qty: 14 RF: 0 atorvastatin 40 mg tablet 40 mg PO BEDTIME RF: 0 hydrochlorothiazide 12.5 mg tablet 12.5 mg PO DAILY RF: 0 polyethylene glycol 3350 [Miralax] 17 gram/dose powder 17 g PO ONCE Qty: 238 RF: 0 Referrals: Ryan De La Cruz MD [Primary Care Provider] - 2 days Print Language: Urdu
[2021-02-14] MEDS: predniSONE 20 MG TABLET 60 MG PO (10:41)
[2021-02-14] MEDS: oxyCODONE HCl Immed Release 5 MG TABLET PO (10:41)
[2021-02-14] MEDS: Cyclobenzaprine HCl 10 MG TABLET PO (10:41)
[2021-02-14] MEDS: Ketorolac Tromethamine 30 MG/ML VIAL IM (10:42)
== END 2021-02-14 10:50 | disposition home or self-care (01) ==
PROVIDERS: Emergency Provider Emergency Medicine Emergency Medical Services; PCP Internal Medicine
DX: M54.16 Radiculopathy, lumbar region (principal); M54.41 Lumbago with sciatica, right side; S39.012A Strain of muscle, fascia and tendon of lower back, initial encounter; X58.XXXA Exposure to other specified factors, initial encounter; I10 Essential (primary) hypertension; F12.90 Cannabis use, unspecified, uncomplicated; Y93.9 Activity, unspecified; Y92.9 Unspecified place or not applicable; Y99.9 Unspecified external cause status
CPT/HCPCS: 96372; 99283; 99284; J1885